=== PATIENT | female | born 1975 | race Caucasian/White ===

== ENCOUNTER 2016-12-23 12:28 | Outpatient (CLI) | payer BC ==
[~2016-12-23] VITALS: Ht 160 cm; Wt 63.2 kg
[~2016-12-23 12:28] MED LIST: LEVOXYL0.112 MG PO; PRENATAL 1 MG +1 TAB PO
[2016-12-23 12:39] VITALS: BP 115/81; PULSE 120; TEMP 98.3
[2016-12-23] MEDS ORDERED: FERROUS SULFATE65 MG PO (12:39)
[2016-12-23 13:00] VITALS: BP 102/64; PULSE 94
== END 2016-12-23 13:29 | disposition home or self-care (01) ==
LOC: LDRO 12:28 → LDR 12:30 → LDRO 13:29
DX: O36.8130 Decreased fetal movements, third trimester, not applicable or unspecified (principal); Z3A.32 32 weeks gestation of pregnancy
CPT/HCPCS: OP

== ENCOUNTER 2017-01-25 15:51 | Inpatient (IN) | payer BC ==
[~2017-01-25] VITALS: Ht 160.1 cm; Wt 69.5 kg
[~2017-01-25 15:51] MED LIST changes: +FERROUS SULFATE65 MG PO
[2017-02-20] VITALS (18 sets, daily range): BP systolic 93–125; BP diastolic 55–89; PULSE 70–118; TEMP 97.1–98.1
[2017-02-20 06:48] LABS: MEAN CELL VOLUME 95 fl (80.0-100.0); MEAN CORPUSCULAR HGB CONC 35 g/dl (33.0-37.0); MEAN PLATELET VOLUME 9.7 fl (7.4-10.4); PLATELET COUNT 211 K/mm3 (130-400); RED BLOOD COUNT 3.46 M/mm3 (4.10-5.30)
[2017-02-20 06:57] LABS: ADD PATHOLOGY DIFF REVIEW NO; HEMATOCRIT 32.9 % (37.0-47.0); HEMOGLOBIN 11.4 g/dl (12.5-16.0); MEAN CORPUSCULAR HEMOGLOBIN 33 pg (27.0-31.0)
[2017-02-20 07:52] LABS: BAND 3 % (0-10); EOSINOPHIL 3 % (0-4); METAMYELOCYTE 1 % (0-0); NEUTROPHILS 44 % (42.0-75.2); TOTAL CELLS COUNTED 100
[2017-02-21 01:50] VITALS: BP 118/69; PULSE 81; TEMP 97.3
[2017-02-21 05:15] VITALS: BP 112/67; PULSE 78; TEMP 97.4
[2017-02-21 07:17] VITALS: BP 116/73; PULSE 86; TEMP 98.1
[2017-02-21 15:30] VITALS: BP 115/68; PULSE 86; TEMP 97.8
[2017-02-21 21:00] VITALS: BP 125/95; PULSE 82; TEMP 97.5
[2017-02-22 07:00] VITALS: BP 136/70; PULSE 70; TEMP 98.1
[2017-02-22] MEDS ORDERED: MOTRIN 800800 MG/TAB PO (09:31)
[2017-02-22] MEDS ORDERED: PERCOCET 325 MG1 TA2 PO (09:31)
[2017-02-22 16:00] VITALS: BP 120/78; PULSE 78; TEMP 98.1
[2017-02-22 20:20] VITALS: BP 132/73; PULSE 103; TEMP 98.3
[2017-02-23 06:45] VITALS: BP 120/76; PULSE 86; TEMP 97.6
== END 2017-02-23 12:10 | disposition home or self-care (01) | DRG 766 ==
LOC: OB 02-20 05:43 → LDR 02-20 09:55 → EDSTATUS 02-23 09:49 → OB 02-23 12:10 → LDRO 02-23 15:50
PROVIDERS: Obstetrics & Gynecology
PROC: 10D00Z1 Extraction of Products of Conception, Low, Open Approach (ICD-10-PCS; principal; 2017-02-20)
DX: O34.211 Maternal care for low transverse scar from previous cesarean delivery (principal); N85.8 Other specified noninflammatory disorders of uterus; O09.523 Supervision of elderly multigravida, third trimester; O99.824 Streptococcus B carrier state complicating childbirth; O99.284 Endocrine, nutritional and metabolic diseases complicating childbirth; E03.9 Hypothyroidism, unspecified; Z37.0 Single live birth; Z3A.39 39 weeks gestation of pregnancy
CPT/HCPCS: J0690; J1885; J2270; J2370; J2405; J2590; J7120

== ENCOUNTER 2018-01-10 18:42 | Observation (INO) | payer BC ==
[~2018-01-10] VITALS: Ht 162.6 cm; Wt 56.7 kg
[~2018-01-10 18:42] MED LIST changes: +MOTRIN 800800 MG/TAB PO; +PERCOCET 325 MG1 TA2 PO
[2018-01-10] MEDS ORDERED: NITRO-BID22 TOP (18:52)
[2018-01-10 19:36] LABS: EOS # 0.3 (0.0-0.7); EOS % 2.4 % (0-4.0); GRAN # 5.5 (1.4-6.5); GRAN % 51.3 % (42.2-75.2); LYMPH % 37.6 % (20.0-51.0); MEAN CELL VOLUME 93 fl (80.0-100.0); MEAN CORPUSCULAR HGB CONC 33 g/dl (33.0-37.0); MEAN PLATELET VOLUME 9.5 fl (7.4-10.4); MONO # 0.9 (0.1-0.6); PLATELET COUNT 309 K/mm3 (130-400); RED BLOOD COUNT 3.78 M/mm3 (4.10-5.30); REDCELL DISTRIBUTION WIDTH-CV 11.6 % (11.5-14.5)
[2018-01-10 19:41] LABS: HEMATOCRIT 35.3 % (37.0-47.0); HEMOGLOBIN 11.8 g/dl (12.5-16.0); MEAN CORPUSCULAR HEMOGLOBIN 31 pg (27.0-31.0)
[2018-01-10 19:46] LABS: PROTHROMBIN TIME 11.7 SECONDS (9.7-12.8)
[2018-01-10 19:48] LABS: ALBUMIN 4.4 gm/dL (3.5-5.0); BILIRUBIN,TOTAL 0.3 mg/dL (0.0-1.0); CREATININE, serum 0.62 mg/dL (0.52-1.25); TOTAL PROTEIN 7.5 gm/dL (6.4-8.2)
[2018-01-10 19:49] LABS: PARTIAL THROMBOPLASTIN TIME 31.2 SECONDS (26.0-37.0)
[2018-01-10 22:39] VITALS: BP 142/72; PULSE 92; TEMP 98.5
[2018-01-11 07:49] VITALS: BP 121/80; PULSE 90; TEMP 98.1
[2018-01-11 10:34] LABS: BASO % 0.1 % (0.0-2.0); EOS # 0.1 (0.0-0.7); EOS % 1.7 % (0-4.0); GRAN # 4.6 (1.4-6.5); GRAN % 64.3 % (42.2-75.2); LYMPH # 1.8 (1.2-3.4); LYMPH % 24.8 % (20.0-51.0); MEAN CELL VOLUME 93 fl (80.0-100.0); MEAN CORPUSCULAR HGB CONC 34 g/dl (33.0-37.0); MEAN PLATELET VOLUME 9.2 fl (7.4-10.4); MONO # 0.6 (0.1-0.6); MONO % 8.7 % (1.7-9.3); PLATELET COUNT 216 K/mm3 (130-400); RED BLOOD COUNT 2.99 M/mm3 (4.10-5.30); REDCELL DISTRIBUTION WIDTH-CV 11.5 % (11.5-14.5)
[2018-01-11 10:40] LABS: HEMATOCRIT 27.8 % (37.0-47.0); HEMOGLOBIN 9.3 g/dl (12.5-16.0); MEAN CORPUSCULAR HEMOGLOBIN 31 pg (27.0-31.0)
[2018-01-11 10:45] LABS: CREATININE, serum 0.59 mg/dL (0.52-1.25); MAGNESIUM 1.9 mg/dL (1.6-2.3); PHOSPHOROUS 3.5 mg/dL (2.5-4.5)
== END 2018-01-11 11:42 | disposition home or self-care (01) ==
LOC: COL.ER 18:42 → MEDICAL 19:53
PROVIDERS: Emergency Medicine; Internal Medicine
DX: D53.9 Nutritional anemia, unspecified (principal); E87.6 Hypokalemia; R73.9 Hyperglycemia, unspecified; E03.9 Hypothyroidism, unspecified; Z82.49 Family history of ischemic heart disease and other diseases of the circulatory system; Z80.0 Family history of malignant neoplasm of digestive organs
CPT/HCPCS: 99239; G0378; J2250; J3010; J7030

== ENCOUNTER 2018-09-16 15:46 | Emergency (ER) | payer BC ==
[~2018-09-16] VITALS: Ht 160 cm; Wt 52.7 kg
[~2018-09-16 15:46] MED LIST changes: +NITRO-BID22 TOP
[2018-09-16] MEDS ORDERED: MIRENA52 MG IY (16:15)
[2018-09-16 16:44] LABS: BASO % 0.2 % (0.0-2.0); EOS % 0.2 % (0-4.0); GRAN # 7.4 (1.4-6.5); GRAN % 91.4 % (42.2-75.2); HEMATOCRIT 37.5 % (37.0-47.0); HEMOGLOBIN 12.9 g/dl (12.5-16.0); LYMPH # 0.5 (1.2-3.4); LYMPH % 6.5 % (20.0-51.0); MEAN CELL VOLUME 90 fl (80.0-100.0); MEAN CORPUSCULAR HEMOGLOBIN 31 pg (27.0-31.0); MEAN CORPUSCULAR HGB CONC 34 g/dl (33.0-37.0); MEAN PLATELET VOLUME 9.3 fl (7.4-10.4); MONO # 0.1 (0.1-0.6); MONO % 1.1 % (1.7-9.3); PLATELET COUNT 279 K/mm3 (130-400); RED BLOOD COUNT 4.17 M/mm3 (4.10-5.30); REDCELL DISTRIBUTION WIDTH-CV 11.7 % (11.5-14.5)
[2018-09-16 16:57] LABS: ALBUMIN 4.3 gm/dL (3.5-5.0); BILIRUBIN,TOTAL 0.8 mg/dL (0.0-1.0); CALCIUM 9.1 mg/dL (8.4-10.2); CREATININE, serum 0.58 mg/dL (0.52-1.25); POTASSIUM 3.3 mmol/L (3.4-5.0); TOTAL PROTEIN 7.9 gm/dL (6.4-8.2)
[2018-09-16 17:09] LABS: COLLECTION METHOD CLEAN CATCH
[2018-09-16 17:24] LABS: MUCOUS Present /lpf; PH 6 (5-8); SQUAMOUS EPITHELIAL 0-2 /hpf; URINE APPEARANCE Clear; URINE BACTERIA None Seen /hpf; URINE BILIRUBIN Negative (NEGATIVE); URINE BLOOD 1+ (NEGATIVE); URINE COLOR Yellow; URINE GLUCOSE Negative (NEGATIVE); URINE KETONE Negative (NEGATIVE); URINE LEUKOCYTE ESTERASE Negative (NEGATIVE); URINE NITRATE Negative (NEGATIVE); URINE PROTEIN(semi-quant) Negative (NEGATIVE); URINE UROBILINOGEN Negative (NEGATIVE)
[2018-09-16] MEDS ORDERED: BACTRIM DS 8001 TAB PO (18:43)
[2018-09-16] MEDS ORDERED: TYLENOL W/COD1 UDTAB PO (18:43)
[2018-09-16 19:58] VITALS: BP 112/78; PULSE 111; TEMP 98.7
== END 2018-09-16 20:00 | disposition home or self-care (01) ==
LOC: COL.ER 15:46
PROVIDERS: Emergency Medicine
DX: N75.1 Abscess of Bartholin's gland (principal); E03.9 Hypothyroidism, unspecified
CPT/HCPCS: J1885; J3370; J7030; J7050

== ENCOUNTER → 2020-05-31 | Outpatient (CLI) | payer BC ==
[~2020-05-31] MED LIST changes: +BACTRIM DS 8001 TAB PO; +MIRENA52 MG IY; +TYLENOL W/COD1 UDTAB PO
== END ==
LOC: MC.RAD 14:14
DX: Z12.31 Encounter for screening mammogram for malignant neoplasm of breast (principal)

== ENCOUNTER → 2022-05-23 | Outpatient (CLI) | payer BC | LOC: MC.RAD 10:54 | DX: Z12.31 Encounter for screening mammogram for malignant neoplasm of breast (principal) ==